=== PATIENT | female | born 1985 ===

== ENCOUNTER 2017-05-23 11:07 | Day surgery (SDC) | payer OTHER ==
[2017-05-23 11:33] VITALS: BMI 24.0
[2017-05-23 11:36] VITALS: RESP 18
[2017-05-23] MEDS ORDERED: Lidocaine 1% Inj (20ml) ONE (12:56)
--- NOTE | 2017-05-23 13:23 | CP.SDSHP ---
Same Day Surgery H & P - History Proposed Procedure: US guided FNA Of thyroid nodules Pre-Op Diagnosis: Thyroid nodules - Allergies Allergies: Allergies No Known Allergies Allergy (Verified 05/23/17 11:23) - Physical Exam Vital Signs: Vital Signs 05/23/17 05/23/17 05/23/17 11:34 11:37 12:52 Temperature 98.8 F 97.2 F L Pulse Rate 67 67 70 Respiratory 18 18 Rate Blood Pressure 113/70 108/58 L O2 Sat by Pulse 100 Oximetry Mental Status: Alert & Oriented x3 Neuro: WNL Heart: WNL Lungs: WNL - Impression Impression: Limited US of neck showed a heterogenous right thyroid and no nodules. There is a 1.6 cm complex left thyroid midpole nodule. Plan US guided FNA of left thyroid nodule. Pt. Evaluated Today:Candidate for Anesthesia & Procedure: No - Date & Time Date: 05/23/17 Time: 12:50 Short Stay Discharge - Short Stay Discharge Admitting Diagnosis/Reason for Visit: THYROID NODULE Referrals: Elvis Bess MD [Primary Care Provider] -
--- NOTE | 2017-05-23 13:25 | PCM.SURG1 ---
Surgeon's Initial Post Op Note - Surgeon's Notes Surgeon: Baldomero Santo MD Protective Signal Operator: NONE Type of Anesthesia: Local Pre-Operative Diagnosis: Thyroid nodule Operative Findings: Limited US of neck showed a heterogenous right thyroid and no nodules. There is a 1.6 cm complex left thyroid midpole nodule. Post-Operative Diagnosis: Thyroid nodule Operation Performed: US guided FNA of left thyroid nodule. Four 25 g FNA samples obtained. Specimen/Specimens Removed: 25 g FNA x 4 Estimated Blood Loss: EBL {In ML}: 0 Blood Products Given: N/A Drains Used: No Drains Post-Op Condition: Good Date of Surgery/Procedure: 05/23/17 Time of Surgery/Procedure: 13:00
[2017-05-23 13:34] VITALS: BP 107/62; PULSE 55; TEMP 98.4; O2SAT 99
--- NOTE | 2017-06-08 11:14 | VASCULAR ---
PROCEDURE: Date of Procedure: 05/23/2017 PROCEDURE: 1. Ultrasound guided FNA of left thyroid nodule, CPT 90790 2. Ultrasound guidance for FNA, 13756 Medications: 3cc 1% Lidocaine HISTORY: Enlarged left thyroid nodule. TECHNIQUE: Following informed consent and procedure time-out, a limited ultrasound patient's neck confirmed the presence of a 1.2 cm complex left thyroid nodule which is predominantly solid. After the patient's neck was prepped and draped in the usual sterile fashion, the skin was anesthetized with 1% lidocaine. Ultrasound-guided fine needle aspiration was then performed of the dominant left thyroid nodule. A total of 4 passes were made into the nodule with 25 gauge needle under ultrasound guidance. The FNA specimen was sent for routine pathology. Post biopsy ultrasound showed no hematoma. IMPRESSION: Ultrasound-guided FNA of the dominant left thyroid nodule.
== END 2017-05-23 14:00 | disposition home or self-care (01) ==
LOC: H.OPSURG 11:07
PROVIDERS: ATTEND Family Medicine
DX: E04.2 Nontoxic multinodular goiter (principal)